=== PATIENT | female | born 1970 ===

== ENCOUNTER → 2018-11-14 20:43 | Outpatient (REF) | payer OTHER, SELFPAY ==
[2018-11-14 22:05] LABS: Thyroid Stimulating Hormone 3.54 uIU/mL (0.47-4.68)
[2018-11-15 00:12] LABS: Free T3, Triiodothyronine Free 3.93 pg/mL (2.77-5.27); Free T4, Direct Thyroxine 0.88 ng/dL (0.78-2.19)
[2018-11-16 19:36] LABS: Progesterone < 0.5 ng/mL
[2018-11-18 15:51] LABS: Estrogen 93.5 pg/mL
[2018-11-19 22:00] LABS: Testosterone Free 1.5 pg/mL (0.1-6.4); Testosterone Total 9 ng/dL (2-45)
== END ==
LOC: LAB 20:43
PROVIDERS: Visit Provider Naturopath
DX: F43.21 Adjustment disorder with depressed mood (principal)
CPT/HCPCS: 36415; 82672; 83001; 83002; 84144; 84402; 84403; 84439; 84443; 84481